=== PATIENT | female | born 1975 ===

== ENCOUNTER 2017-08-16 14:53 | Inpatient (IN) ==
[2017-08-16] MEDS ORDERED: VANCOMYCIN INJ 1,000 MG in SODIUM CHLORIDE 0.9% 250 ML IV STA (15:14)
[2017-08-16 16:18] LABS: Basophils % 0.2 % (0.0-0.8); Eosinophils # 0.2 10*3/uL (0.0-0.87); Hematocrit 33.6 VOL% (35.7-47.0); Hemoglobin 11.1 GM/DL (12.0-16.0); Immature Granulocytes % 0.4 %; Immature Granulocytes Absolute 0.02 #; Lymphocytes # 0.6 10*3/uL (1.4-4.0); Lymphocytes % 12.4 % (21.3-54.2); Mean Corpuscular Hemoglobin 33 PG (27-34); Mean Corpuscular Volume 99.1 FL (87-102); Mean Platelet Volume 9.6 FL (9.6-12.0); Monocytes # 0.6 10*3/uL (0.11-0.8); Neutrophils # 3.7 10*3/uL (1.4-7.4); Platelet Count 212 T/CUMM (130-400); Red Blood Count 3.39 MC/CUMM (3.8-5.5); Red Cell Distribution Width 15.6 % (9.3-17.3)
[2017-08-16 16:26] LABS: INR 1.2; PT Patient Result 12.2 SECS; Partial Thromboplastin Time 27.8 SECS (0-40)
[2017-08-16] MEDS ORDERED: GLUCAGON 1 MG VIAL IM PRN (16:30)
[2017-08-16] MEDS ORDERED: ACETAMINOPHEN 325 MG TABLET PO PRN (16:30)
[2017-08-16] MEDS ORDERED: DEXTROSE 50% 25 GM/50 ML VIAL IV PRN (16:30)
[2017-08-16 16:33] LABS: Lactic Acid 0.8 MMOL/L (0.4-2.0)
[2017-08-16 16:42] LABS: Albumin 2.9 G/DL (3.4-5.0); Bilirubin,Total 1.7 MG/DL (0.2-1.0); Calcium 8.7 MG/DL (8.5-10.1); Osmolality,Calculated 275.4 MOS/KG (273-304); Potassium 4.3 MMOL/L (3.5-5.1); Total Protein 7.6 G/DL (6.4-8.3)
[2017-08-16] MEDS ORDERED: VANCOMYCIN INJ 500 MG in SODIUM CHLORIDE 0.9% 100 ML IV PRN (17:46)
[2017-08-16] MEDS: INSULIN LISPRO 100 UNIT/ML SUBCUT SCH ×2 (19:15→20:33)
[2017-08-16] MEDS: ENOXAPARIN 30 MG/0.3 ML SYRINGE SUBCUT SCH (19:16)
[2017-08-16] MEDS: CARVEDILOL 3.125 MG TABLET PO SCH ×2 (20:33→22:12)
[2017-08-16] MEDS: PRAVASTATIN 20 MG TABLET PO SCH (20:34)
[2017-08-16 20:42] LABS: Hepatitis A Ab IgM Quant 0.21 Index; Hepatitis A Ab IgM Result Negative (Negative); Hepatitis B Core IgM Quant 0.21 Index; Hepatitis B Core IgM Result Negative (Negative); Hepatitis B Surface Ag Quant < 0.10 Index; Hepatitis B Surface Ag Result Negative (Negative); Hepatitis C Virus Ab Quant 0.13 Index; Hepatitis C Virus Ab Result Negative (Negative)
[2017-08-16] MEDS ORDERED: VANCOMYCIN INJ 500 MG in SODIUM CHLORIDE 0.9% 100 ML IV ONE (23:30)
[2017-08-17 05:59] LABS: Basophils % 0.2 % (0.0-0.8); Eosinophils # 0.1 10*3/uL (0.0-0.87); Eosinophils % 1.2 % (0.00-10.9); Hematocrit 30.7 VOL% (35.7-47.0); Hemoglobin 10.2 GM/DL (12.0-16.0); Immature Granulocytes % 0.2 %; Immature Granulocytes Absolute 0.01 #; Lymphocytes # 0.5 10*3/uL (1.4-4.0); Lymphocytes % 9.7 % (21.3-54.2); Mean Corpuscular HGB Conc 33.2 GM/DL (32-36); Mean Corpuscular Hemoglobin 33 PG (27-34); Mean Corpuscular Volume 98.4 FL (87-102); Mean Platelet Volume 9.7 FL (9.6-12.0); Monocytes # 0.5 10*3/uL (0.11-0.8); Monocytes % 8.9 % (1.7-12.7); Neutrophils % 79.8 % (38.7-73.9); Platelet Count 205 T/CUMM (130-400); Red Blood Count 3.12 MC/CUMM (3.8-5.5); Red Cell Distribution Width 15.6 % (9.3-17.3); White Blood Count 5.1 T/CUMM (4-12)
[2017-08-17 06:36] LABS: Calcium 8.7 MG/DL (8.5-10.1); Osmolality,Calculated 268.4 MOS/KG (273-304); Potassium 3.9 MMOL/L (3.5-5.1)
[2017-08-17] MEDS: INSULIN LISPRO 100 UNIT/ML SUBCUT SCH ×4 (09:12→20:46)
[2017-08-17] MEDS: PANTOPRAZOLE 20 MG TABLET PO SCH (09:15)
[2017-08-17] MEDS: LISINOPRIL 5 MG TABLET PO SCH (09:34)
[2017-08-17] MEDS: CARVEDILOL 3.125 MG TABLET PO SCH ×2 (09:36→20:45)
[2017-08-17] MEDS: ASPIRIN 325 MG TABLET PO SCH (09:36)
[2017-08-17] MEDS: PANTOPRAZOLE 40 MG TABLET PO SCH (09:36)
[2017-08-17] MEDS ORDERED: DIPHENOXYLATE/ATROPINE 2.5-0.025 MG TABLET PO PRN (09:45)
[2017-08-17] MEDS: ENOXAPARIN 30 MG/0.3 ML SYRINGE SUBCUT SCH (16:28)
[2017-08-17] MEDS ORDERED: diphenhydrAMINE CAP 25 MG CAPSULE PO PRN (20:11)
[2017-08-17] MEDS: PRAVASTATIN 20 MG TABLET PO SCH (20:45)
[2017-08-18] MEDS: INSULIN LISPRO 100 UNIT/ML SUBCUT SCH ×3 (08:52→17:40)
[2017-08-18] MEDS: ASPIRIN 325 MG TABLET PO SCH (11:00)
[2017-08-18] MEDS: CARVEDILOL 3.125 MG TABLET PO SCH (11:01)
[2017-08-18] MEDS: PANTOPRAZOLE 40 MG TABLET PO SCH (11:02)
[2017-08-18] MEDS: LISINOPRIL 5 MG TABLET PO SCH (11:03)
[2017-08-18] MEDS: PANTOPRAZOLE 20 MG TABLET PO SCH (11:03)
[2017-08-18] MEDS ORDERED: SKIN HEALING OINT (AQUAPHOR) 50 GM TUBE TOP PRN (11:59)
[2017-08-18] MEDS ORDERED: MUPIROCIN 2% OINT 22 GM TUBE TOP SCH (12:00)
[2017-08-18] MEDS: ENOXAPARIN 30 MG/0.3 ML SYRINGE SUBCUT SCH (17:40)
[2017-08-18 22:31] VITALS: BP 139/77
== END 2017-08-18 18:25 | disposition home or self-care (01) | DRG 602 ==
LOC: EDBD → EDUNIT# → N.ED 14:53 → N.EDINP 15:50 → N.5E 17:20

== ENCOUNTER 2017-08-20 22:54 | Inpatient (IN) ==
[2017-08-22 07:22] VITALS: BP 128/88
== END 2017-08-22 11:06 | disposition home or self-care (01) | DRG 602 ==
LOC: EDUNIT# → EDBD → N.ED 22:54 → N.EDINP 08-21 01:10 → N.2E 08-21 02:32
PROVIDERS: ADMIT Internal Medicine Nephrology; ATTEND Internal Medicine Nephrology

== ENCOUNTER 2018-02-03 17:50 | Observation (INO) ==
[2018-02-03] MEDS ORDERED: GLUCAGON 1 MG VIAL IM PRN (18:29)
[2018-02-03] MEDS ORDERED: ONDANSETRON 4 MG/2 ML VIAL IV PRN (18:29)
[2018-02-03] MEDS ORDERED: ACETAMINOPHEN 325 MG TABLET PO PRN (18:29)
[2018-02-03] MEDS: METOPROLOL TARTRATE 25 MG TABLET PO SCH (21:01)
[2018-02-03] MEDS: INSULIN REGULAR 100 UNIT/ML SUBCUT SCH (21:01)
[2018-02-03] MEDS: ONDANSETRON 4 MG TABLET PO SCH ×2 (21:01→23:04)
[2018-02-03] MEDS: SIMVASTATIN 10 MG TABLET PO SCH (21:01)
[2018-02-03] MEDS: ENOXAPARIN 30 MG/0.3 ML SYRINGE SUBCUT SCH (21:02)
[2018-02-04] MEDS: ONDANSETRON 4 MG TABLET PO SCH ×6 (03:44→21:19)
[2018-02-04 07:13] LABS: Basophils % 0.5 % (0.0-0.8); Eosinophils # 0.3 10*3/uL (0.0-0.87); Eosinophils % 7.2 % (0.00-10.9); Hematocrit 26.7 VOL% (35.7-47.0); Hemoglobin 8.3 GM/DL (12.0-16.0); Immature Granulocytes % 0.2 %; Immature Granulocytes Absolute 0.01 #; Lymphocytes # 0.5 10*3/uL (1.4-4.0); Lymphocytes % 11.9 % (21.3-54.2); Mean Corpuscular HGB Conc 31.1 GM/DL (32-36); Mean Corpuscular Hemoglobin 31 PG (27-34); Mean Corpuscular Volume 101.1 FL (87-102); Mean Platelet Volume 9.3 FL (9.6-12.0); Monocytes # 0.4 10*3/uL (0.11-0.8); Monocytes % 10.9 % (1.7-12.7); Neutrophils # 2.8 10*3/uL (1.4-7.4); Neutrophils % 69.3 % (38.7-73.9); Platelet Count 209 T/CUMM (130-400); Red Blood Count 2.64 MC/CUMM (3.8-5.5); White Blood Count 4.1 T/CUMM (4-12)
[2018-02-04 07:36] LABS: Albumin 2.1 G/DL (3.4-5.0); Calcium 7.6 MG/DL (8.5-10.1); Osmolality,Calculated 276.4 MOS/KG (273-304); Potassium 4.7 MMOL/L (3.5-5.1); Total Protein 7.3 G/DL (6.4-8.3)
[2018-02-04] MEDS: INSULIN NPH 100 UNIT/ML SUBCUT SCH ×2 (09:41→19:14)
[2018-02-04] MEDS: CLOPIDOGREL 75 MG TABLET PO SCH (09:41)
[2018-02-04] MEDS: CETIRIZINE 10 MG TABLET PO SCH (09:41)
[2018-02-04] MEDS: FEXOFENADINE 180 MG TABLET PO SCH (09:41)
[2018-02-04] MEDS: PANTOPRAZOLE 40 MG TABLET PO SCH (09:41)
[2018-02-04] MEDS: INSULIN REGULAR 100 UNIT/ML SUBCUT SCH ×3 (09:42→19:14)
[2018-02-04] MEDS: METOPROLOL TARTRATE 25 MG TABLET PO SCH ×2 (09:47→21:19)
[2018-02-04] MEDS: LISINOPRIL 5 MG TABLET PO SCH (09:48)
[2018-02-04] MEDS: DEXTROSE 50% 25 GM/50 ML VIAL IV PRN (18:45)
[2018-02-04] MEDS: SIMVASTATIN 10 MG TABLET PO SCH (21:19)
[2018-02-04] MEDS: ENOXAPARIN 30 MG/0.3 ML SYRINGE SUBCUT SCH ×2 (21:20→21:26)
[2018-02-04] MEDS: diphenhydrAMINE CAP 25 MG CAPSULE PO PRN (23:04)
[2018-02-05] MEDS: ONDANSETRON 4 MG TABLET PO SCH ×7 (01:37→21:23)
[2018-02-05] MEDS: INSULIN REGULAR 100 UNIT/ML SUBCUT SCH ×4 (01:42→16:10)
[2018-02-05 04:11] LABS: Basophils % 0.7 % (0.0-0.8); Eosinophils # 0.2 10*3/uL (0.0-0.87); Eosinophils % 5.2 % (0.00-10.9); Hematocrit 28.2 VOL% (35.7-47.0); Hemoglobin 8.7 GM/DL (12.0-16.0); Immature Granulocytes % 0.2 %; Immature Granulocytes Absolute 0.01 #; Lymphocytes # 0.5 10*3/uL (1.4-4.0); Lymphocytes % 10.7 % (21.3-54.2); Mean Corpuscular HGB Conc 30.9 GM/DL (32-36); Mean Corpuscular Hemoglobin 32 PG (27-34); Mean Corpuscular Volume 102.5 FL (87-102); Mean Platelet Volume 9.4 FL (9.6-12.0); Monocytes # 0.5 10*3/uL (0.11-0.8); Monocytes % 11.8 % (1.7-12.7); Neutrophils # 3.2 10*3/uL (1.4-7.4); Neutrophils % 71.4 % (38.7-73.9); Platelet Count 230 T/CUMM (130-400); Red Blood Count 2.75 MC/CUMM (3.8-5.5); Red Cell Distribution Width 16.9 % (9.3-17.3); White Blood Count 4.4 T/CUMM (4-12)
[2018-02-05 04:26] LABS: Albumin 2.2 G/DL (3.4-5.0); Bilirubin,Total 1.2 MG/DL (0.2-1.0); Osmolality,Calculated 275.1 MOS/KG (273-304); Potassium 4.7 MMOL/L (3.5-5.1); Total Protein 7.6 G/DL (6.4-8.3)
[2018-02-05] MEDS: DEXTROSE 50% 25 GM/50 ML VIAL IV PRN (07:50)
[2018-02-05] MEDS: CETIRIZINE 10 MG TABLET PO SCH (08:32)
[2018-02-05] MEDS: PANTOPRAZOLE 40 MG TABLET PO SCH (08:32)
[2018-02-05] MEDS: FEXOFENADINE 180 MG TABLET PO SCH (08:32)
[2018-02-05] MEDS: INSULIN NPH 100 UNIT/ML SUBCUT SCH (08:32)
[2018-02-05] MEDS: METOPROLOL TARTRATE 25 MG TABLET PO SCH ×2 (08:32→21:23)
[2018-02-05] MEDS: CLOPIDOGREL 75 MG TABLET PO SCH (08:32)
[2018-02-05] MEDS: LISINOPRIL 5 MG TABLET PO SCH (08:32)
[2018-02-05] MEDS: diphenhydrAMINE CAP 25 MG CAPSULE PO PRN ×3 (08:32→21:24)
[2018-02-05] MEDS: SIMVASTATIN 10 MG TABLET PO SCH (21:23)
[2018-02-06] MEDS: ENOXAPARIN 30 MG/0.3 ML SYRINGE SUBCUT SCH (01:33)
[2018-02-06] MEDS: INSULIN REGULAR 100 UNIT/ML SUBCUT SCH ×4 (01:33→16:24)
[2018-02-06] MEDS: ONDANSETRON 4 MG TABLET PO SCH ×5 (01:34→16:24)
[2018-02-06 05:46] LABS: Basophils % 0.7 % (0.0-0.8); Eosinophils # 0.2 10*3/uL (0.0-0.87); Eosinophils % 4.4 % (0.00-10.9); Hematocrit 25.8 VOL% (35.7-47.0); Hemoglobin 7.9 GM/DL (12.0-16.0); Immature Granulocytes % 0.5 %; Immature Granulocytes Absolute 0.02 #; Lymphocytes # 0.6 10*3/uL (1.4-4.0); Lymphocytes % 13.5 % (21.3-54.2); Mean Corpuscular HGB Conc 30.6 GM/DL (32-36); Mean Corpuscular Hemoglobin 32 PG (27-34); Mean Corpuscular Volume 102.8 FL (87-102); Mean Platelet Volume 9.3 FL (9.6-12.0); Monocytes # 0.7 10*3/uL (0.11-0.8); Neutrophils # 2.6 10*3/uL (1.4-7.4); Neutrophils % 64.9 % (38.7-73.9); Platelet Count 226 T/CUMM (130-400); Red Blood Count 2.51 MC/CUMM (3.8-5.5); Red Cell Distribution Width 16.9 % (9.3-17.3); White Blood Count 4.1 T/CUMM (4-12)
[2018-02-06 06:06] LABS: Calcium 8.3 MG/DL (8.5-10.1); Osmolality,Calculated 277.2 MOS/KG (273-304); Potassium 5.5 MMOL/L (3.5-5.1)
[2018-02-06] MEDS: CLOPIDOGREL 75 MG TABLET PO SCH ×2 (09:40→09:47)
[2018-02-06] MEDS: diphenhydrAMINE CAP 25 MG CAPSULE PO PRN (09:40)
[2018-02-06] MEDS: LISINOPRIL 5 MG TABLET PO SCH ×2 (09:40→10:19)
[2018-02-06] MEDS: CETIRIZINE 10 MG TABLET PO SCH (09:40)
[2018-02-06] MEDS: METOPROLOL TARTRATE 25 MG TABLET PO SCH ×2 (09:40→10:19)
[2018-02-06] MEDS: PANTOPRAZOLE 40 MG TABLET PO SCH (09:40)
[2018-02-06] MEDS: FEXOFENADINE 180 MG TABLET PO SCH (09:40)
[2018-02-06] MEDS ORDERED: ALBUMIN 25% 25 GM in PREMIX 1 EACH IV ONE (10:05)
[2018-02-06 11:28] LABS: Eosinophils 2 % (0-10); Lymphocytes 13 % (20-55); Platelet Estimate Normal; Polychromasia Slight; Segmented Neutrophils 75 % (50-85); Total Cells Counted 100
[2018-02-06 17:39] VITALS: BP 150/88
== END 2018-02-06 17:43 | disposition home or self-care (01) ==
LOC: N.5E 17:50 → INTOOBSV 17:50 → SUATTDRO 17:50
PROVIDERS: ADMIT Internal Medicine; ATTEND Hospitalist

== ENCOUNTER 2018-02-23 20:11 | Inpatient (IN) ==
[2018-02-23] MEDS ORDERED: ONDANSETRON 4 MG/2 ML VIAL IV STA (20:40)
[2018-02-23 20:51] LABS: Basophils % 0.5 % (0.0-0.8); Eosinophils # 0.1 10*3/uL (0.0-0.87); Eosinophils % 1.3 % (0.00-10.9); Hematocrit 20.4 VOL% (35.7-47.0); Immature Granulocytes % 0.6 %; Immature Granulocytes Absolute 0.04 #; Lymphocytes # 0.3 10*3/uL (1.4-4.0); Lymphocytes % 4.7 % (21.3-54.2); Mean Corpuscular HGB Conc 30.4 GM/DL (32-36); Mean Corpuscular Hemoglobin 33 PG (27-34); Mean Corpuscular Volume 106.8 FL (87-102); Mean Platelet Volume 9.6 FL (9.6-12.0); Monocytes # 0.3 10*3/uL (0.11-0.8); NRBC # 0.03 10*3/uL; Neutrophils # 5.6 10*3/uL (1.4-7.4); Neutrophils % 87.9 % (38.7-73.9); Platelet Count 263 T/CUMM (130-400); Red Blood Count 1.91 MC/CUMM (3.8-5.5); Red Cell Distribution Width 19.4 % (9.3-17.3); White Blood Count 6.4 T/CUMM (4-12)
[2018-02-23 20:54] LABS: Hemoglobin 6.2 GM/DL (12.0-16.0)
[2018-02-23 20:57] LABS: INR 1.1; PT Patient Result 11.4 SECS; Partial Thromboplastin Time 28.9 SECS (0-40)
[2018-02-23 21:04] LABS: Apearance,Urine CLEAR (Clear); Bacteria,Urine Occasional /HPF (Few); Bilirubin,Urine Negative (Negative); Blood, Urine Negative (Negative); Glucose,Urine (UA) Negative (Negative); Ketones,Urine Negative (Negative); Nitrite,Urine Negative (Negative); Protein,Urine 100 MG/DL; RBC,Urine 1 /HPF (0-4); Squamous Epithelial Cell,Urine Occasional /HPF (0-10); Urine Color Yellow (Yellow); Urine Urobilinogen < 2.0 EU/DL (0.2-1.0); WBC,Urine 1 /HPF (0-6)
[2018-02-23 21:06] LABS: Alanine Aminotransferase 45 U/L (13-56); Albumin 1.8 G/DL (3.4-5.0); Alkaline Phosphatase 352 U/L (45-117); Amylase 48 U/L (25-115); Aspartate Amino Transferase 144 U/L (0-37); Blood Urea Nitrogen 32 MG/DL (7-18); Calcium 7.4 MG/DL (8.5-10.1); Glucose 165 MG/DL (74-106); Osmolality,Calculated 276.4 MOS/KG (273-304); Potassium 4.5 MMOL/L (3.5-5.1); Sodium 133 MMOL/L (136-145); Total Protein 6.8 G/DL (6.4-8.3)
[2018-02-23 21:07] LABS: Troponin I 0.142 NG/ML (0.00-0.045)
[2018-02-23 22:35] LABS: Eosinophils 2 % (0-10); Lymphocytes 3 % (20-55); Metamyelocytes 1 %; Segmented Neutrophils 92 % (50-85); Total Cells Counted 100
[2018-02-23 22:36] LABS: Hypochromasia Slight; Platelet Estimate Adequate; Polychromasia Few
[2018-02-23] MEDS ORDERED: ONDANSETRON 4 MG/2 ML VIAL IV PRN (23:43)
[2018-02-23] MEDS ORDERED: LACTULOSE 20 GM/30 ML UDCUP PO PRN (23:43)
[2018-02-23] MEDS ORDERED: DEXTROSE 5% NACL 0.45% 1,000 ML IV SCH (23:45)
[2018-02-24] MEDS ORDERED: SODIUM CHLORIDE 0.9% 1,000 ML IV PRN (01:35)
[2018-02-24 04:37] LABS: Basophils % 0.2 % (0.0-0.8); Eosinophils % 0.7 % (0.00-10.9); Hematocrit 19.2 VOL% (35.7-47.0); Immature Granulocytes % 0.2 %; Immature Granulocytes Absolute 0.01 #; Lymphocytes # 0.5 10*3/uL (1.4-4.0); Lymphocytes % 8.4 % (21.3-54.2); Mean Corpuscular HGB Conc 30.2 GM/DL (32-36); Mean Corpuscular Hemoglobin 33 PG (27-34); Mean Corpuscular Volume 107.9 FL (87-102); Mean Platelet Volume 9.6 FL (9.6-12.0); Monocytes # 0.8 10*3/uL (0.11-0.8); Monocytes % 14.6 % (1.7-12.7); NRBC # 0.02 10*3/uL; Neutrophils # 4.3 10*3/uL (1.4-7.4); Neutrophils % 75.9 % (38.7-73.9); Platelet Count 248 T/CUMM (130-400); Red Blood Count 1.78 MC/CUMM (3.8-5.5); Red Cell Distribution Width 19.4 % (9.3-17.3); White Blood Count 5.6 T/CUMM (4-12)
[2018-02-24 04:55] LABS: Hemoglobin 5.8 GM/DL (12.0-16.0)
[2018-02-24 05:15] LABS: Albumin 1.7 G/DL (3.4-5.0); Bilirubin,Total 1.6 MG/DL (0.2-1.0); Calcium 7.3 MG/DL (8.5-10.1); Potassium 4.8 MMOL/L (3.5-5.1); Total Protein 6.1 G/DL (6.4-8.3)
[2018-02-24] MEDS: INSULIN REGULAR 100 UNIT/ML SUBCUT SCH ×4 (08:17→21:58)
[2018-02-24] MEDS: FUROSEMIDE 40 MG/4 ML VIAL IV SCH (09:36)
[2018-02-24] MEDS: PANTOPRAZOLE 40 MG TABLET PO SCH (09:36)
[2018-02-24] MEDS: LISINOPRIL 5 MG TABLET PO SCH (09:36)
[2018-02-24] MEDS: SPIRONOLACTONE 25 MG TABLET PO SCH ×2 (09:36→22:08)
[2018-02-24] MEDS: SKIN HEALING OINT (AQUAPHOR) 50 GM TUBE TOP SCH (09:36)
[2018-02-24] MEDS: METOPROLOL TARTRATE 25 MG TABLET PO SCH ×2 (09:36→22:08)
[2018-02-24 13:37] LABS: Total Protein,Peritoneal Fluid 3.2 G/DL
[2018-02-24 14:39] LABS: Neutrophils,Peritoneal Fluid 17 %; RBC,Peritoneal Fluid 2088 T/CUMM
[2018-02-24] MEDS ORDERED: DEXTROSE 50% 25 GM/50 ML VIAL IV ONE (16:42)
[2018-02-24] MEDS: DEXTROSE 50% 25 GM/50 ML VIAL IV PRN (16:49)
[2018-02-24] MEDS: LACTULOSE 20 GM/30 ML UDCUP PO SCH (22:08)
[2018-02-25 05:55] LABS: Basophils % 0.4 % (0.0-0.8); Eosinophils # 0.2 10*3/uL (0.0-0.87); Eosinophils % 3.5 % (0.00-10.9); Hematocrit 24.9 VOL% (35.7-47.0); Hemoglobin 7.8 GM/DL (12.0-16.0); Immature Granulocytes % 0.4 %; Immature Granulocytes Absolute 0.02 #; Lymphocytes # 0.4 10*3/uL (1.4-4.0); Lymphocytes % 9.5 % (21.3-54.2); Mean Corpuscular HGB Conc 31.3 GM/DL (32-36); Mean Corpuscular Hemoglobin 32 PG (27-34); Mean Corpuscular Volume 103.3 FL (87-102); Mean Platelet Volume 9.5 FL (9.6-12.0); Monocytes # 0.6 10*3/uL (0.11-0.8); Monocytes % 12.3 % (1.7-12.7); Neutrophils # 3.4 10*3/uL (1.4-7.4); Neutrophils % 73.9 % (38.7-73.9); Platelet Count 272 T/CUMM (130-400); Red Blood Count 2.41 MC/CUMM (3.8-5.5); Red Cell Distribution Width 19.5 % (9.3-17.3); White Blood Count 4.6 T/CUMM (4-12)
[2018-02-25 06:11] LABS: Calcium 8.3 MG/DL (8.5-10.1); Osmolality,Calculated 269.2 MOS/KG (273-304); Potassium 4.6 MMOL/L (3.5-5.1)
[2018-02-25] MEDS: LISINOPRIL 5 MG TABLET PO SCH (09:05)
[2018-02-25] MEDS: LACTULOSE 20 GM/30 ML UDCUP PO SCH ×2 (09:05→20:44)
[2018-02-25] MEDS: PANTOPRAZOLE 40 MG TABLET PO SCH (09:05)
[2018-02-25] MEDS: FUROSEMIDE 40 MG/4 ML VIAL IV SCH (09:05)
[2018-02-25] MEDS: SPIRONOLACTONE 25 MG TABLET PO SCH ×2 (09:06→20:43)
[2018-02-25] MEDS: INSULIN REGULAR 100 UNIT/ML SUBCUT SCH ×4 (09:06→20:44)
[2018-02-25] MEDS: SKIN HEALING OINT (AQUAPHOR) 50 GM TUBE TOP SCH (09:06)
[2018-02-25] MEDS: METOPROLOL TARTRATE 25 MG TABLET PO SCH ×2 (09:08→20:43)
[2018-02-25] MEDS ORDERED: LOPERAMIDE 2 MG CAPSULE PO ONE (11:30)
[2018-02-25] MEDS: diphenhydrAMINE 25 MG/10 ML UDCUP PO PRN ×2 (12:03→20:44)
[2018-02-25] MEDS ORDERED: LORazepam 1 MG TABLET PO ONE (22:35)
[2018-02-26] MEDS: DEXTROSE 50% 25 GM/50 ML VIAL IV PRN (07:20)
[2018-02-26] MEDS: INSULIN REGULAR 100 UNIT/ML SUBCUT SCH (08:17)
[2018-02-26] MEDS: FUROSEMIDE 40 MG/4 ML VIAL IV SCH (09:41)
[2018-02-26] MEDS: PANTOPRAZOLE 40 MG TABLET PO SCH (09:42)
[2018-02-26] MEDS: METOPROLOL TARTRATE 25 MG TABLET PO SCH (09:42)
[2018-02-26] MEDS: SPIRONOLACTONE 25 MG TABLET PO SCH (09:42)
[2018-02-26] MEDS: LACTULOSE 20 GM/30 ML UDCUP PO SCH (09:42)
[2018-02-26] MEDS: SKIN HEALING OINT (AQUAPHOR) 50 GM TUBE TOP SCH (09:42)
[2018-02-26] MEDS: LISINOPRIL 5 MG TABLET PO SCH (09:42)
[2018-02-26 13:13] VITALS: BP 123/70
== END 2018-02-26 15:00 | disposition home or self-care (01) | DRG 441 ==
LOC: EDUNIT# → EDBD → N.ED 20:11 → N.EDINP 23:43 → SUATTDRO 23:43 → N.EDINP 02-24 00:50 → N.5E 02-24 01:39
PROVIDERS: ADMIT Internal Medicine; ATTEND Hospitalist